=== PATIENT | female | born 1980 | race Caucasian/White ===

== ENCOUNTER 2018-05-02 11:51 | Emergency (ER) | payer OTHER, MEDICAID, SELFPAY ==
[2018-05-02 12:05] VITALS: BP 118/71; PULSE 122; RESP 20; TEMP 36.1; O2SAT 95; BMI 20.2
--- NOTE | 2018-05-02 14:08 | PC.NURSE ---
Called [facility] care management for ED at [phone] and left message, then called care management and left message at [phone].
--- NOTE | 2018-05-02 14:51 | PC.NURSE ---
went out to find patient and she wasn't there, nor was her friend. The manager front office manager auto, Aaron, did not see her leave nor did she sign out with him, also our triage nurse was unaware of her. [facility] LOYA did come down and was able to talk with her but she left.
== END 2018-05-02 14:52 ==
PROVIDERS: Emergency Provider Internal Medicine
DX: F32.9 Major depressive disorder, single episode, unspecified (principal)
CPT/HCPCS: 99281; 99282